=== PATIENT | male | born 1950 | race Caucasian/White ===

== ENCOUNTER → 2017-02-04 | Outpatient (CLI) | payer OTHER, BC | LOC: BMCIMAGING 08:51 | PROVIDERS: ATTEND Internal Medicine | DX: E04.2 Nontoxic multinodular goiter (principal) | CPT/HCPCS: 76536-PO ==

== ENCOUNTER → 2017-03-24 | Outpatient (CLI) | payer OTHER, BC ==
[~2017-03-24] MED LIST: LIDOCAINE 1% 300 MG/30 ML SDV ONE
== END ==
LOC: FIMAGING 12:29
PROVIDERS: ATTEND Internal Medicine Endocrinology, Diabetes & Metabolism
PROC: 0G9G3ZX Drainage of Left Thyroid Gland Lobe, Percutaneous Approach, Diagnostic (ICD-10-PCS; principal; 2017-03-24)
DX: E04.1 Nontoxic single thyroid nodule (principal)

== ENCOUNTER 2017-04-14 09:24 | Observation (INO) | payer OTHER, BC ==
[2017-04-14] MEDS ORDERED: THROMBIN (BOVINE) 20,000 UNIT VIAL TP ONE (09:36)
[2017-04-14] MEDS ORDERED: CHLORHEXIDINE GLUC HIBICLENS 118 ML BTL TP ONE (09:36)
[2017-04-14] MEDS ORDERED: BACITRACIN 50,000 UNITS/10 ML SYR IRR ONE (09:37)
[2017-04-14] MEDS ORDERED: LIDOCAINE 1% 2 ML INJ ONE (10:00)
[2017-04-14] MEDS ORDERED: LIDOCAINE 1% 2 ML INJ ID PRN (10:08)
[2017-04-14] MEDS ORDERED: LR 1,000 ML IV ONE (10:08)
[2017-04-14] MEDS ORDERED: GABAPENTIN 300 MG CAP PO ONE ×2 (10:15→10:30)
[2017-04-14] MEDS ORDERED: morphINE SR 15 MG TAB PO ONE (10:30)
[2017-04-14] MEDS ORDERED: ceFAZolin 2 GM/SWFI 2 GM/20 ML SYR IVP ONE (10:30)
[2017-04-14] MEDS ORDERED: ACETAMINOPHEN 500 MG TAB PO ONE (10:30)
[2017-04-14] MEDS ORDERED: MIDAZOLAM 2 MG/2 ML VIAL IVP ONE (11:18)
--- NOTE | 2017-04-14 11:18 | PDANEPAE ---
ANE History of Present Illness spinal stenosis ANE Past Medical History - Cardiovascular History Hx Hypertension: Yes Hx Arrhythmias: No Hx Chest Pain: No Hx Coronary Artery / Peripheral Vascular Disease: No Hx CHF / Valvular Disease: No Hx Palpitations: No - Pulmonary History Hx COPD: No Hx Asthma/Reactive Airway Disease: No Hx Recent Upper Respiratory Infection: No Hx Oxygen in Use at Home: No Hx Sleep Apnea: No Sleep Apnea Screening Result - Last Documented: Negative Pulmonary History Comment: ASBESTOSIS W/SOB FROM CUSTODIAL CONSTRUCTION WORK - Neurologic History Hx Cerebrovascular Accident: No Hx Seizures: No Hx Dementia: No - Endocrine History Hx Diabetes: No - Renal History Hx Renal Disorders: No - Liver History Hx Hepatic Disorders: No - Neurological & Psychiatric Hx Hx Neurological and Psychiatric Disorders: No - Cancer History Hx Cancer: Yes Cancer History Comment: 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 SKIN CA REMOVED - Congenital Disorder History Hx Congenital Disorders: No - GI History Hx Gastrointestinal Disorders: Yes Gastrointestinal History Comment: ACID REFLUX - Other Health History Other Health History: NEG - Chronic Pain History Chronic Pain: Yes (L ARM & SHOULDER) - Surgical History Prior Surgeries: BACK SURGERY 2007. R SHOULDER PARTIAL 2007. L TKA 2010. REVISION L TKA 2009. R DIANA 2013. APPENDIX 2015 ANE Review of Systems Review of Systems: - Exercise capacity METS (RN): 3 METS ANE Patient History - Allergies Allergies/Adverse Reactions: No Known Allergies Allergy (Unverified 04/08/17 15:38) - Home Medications Home Medications: Amlodipine Besylate [Norvasc] 5 mg PO DAILY 04/02/17 [Last Taken 04/13/17 06:15] Cholecalciferol Vit D3 [Vitamin D3 2000 units tab (OTC)] 2,000 units PO DAILY [Last Taken 1 Week Ago ~04/07/17] Fish Oil/Dha/Epa [Fish Oil 1,200 mg Fish Oil] 1 each PO DAILY 04/02/17 [Last Taken 1 Week Ago ~04/07/17] Gabapentin [Neurontin 100 MG (*)] 300 mg PO TID 04/02/17 [Last Taken 04/14/17 06 :15] Multivitamins [Multivitamin (*)] 1 each PO DAILY 04/02/17 [Last Taken 1 Week Ago ~04/07/17] Naproxen Sod/Diphenhydramine [Aleve Pm Caplet] 2 each PO HS 04/02/17 [Last Taken 1 Week Ago ~04/07/17] Naproxen Sodium [Aleve] 440 mg PO DAILY 04/02/17 [Last Taken 1 Week Ago ~] RX: Herbals/Supplements -Info Only 1 ea PO DAILY 04/02/17 [Last Taken 1 Week Ago ~04/07/17] RX: Omeprazole 40 mg PO DAILY 04/02/17 [Last Taken 04/13/17 06:00] Hydrocodone/Acetaminophen [Hydrocodon-Acetaminophen 5-325] 1 each PO 04/14/17 [ Last Taken 04/14/17 06:15] - NPO status NPO Since - Liquids (Date): 04/14/17 NPO Since - Liquids (Time): 06:00 NPO Since - Solids (Date): 04/13/17 NPO Since - Solids (Time): 19:00 - Smoking Hx Smoking Status: Former smoker - Family Anes Hx Family Hx Anesthesia Complications: NEG ANE Labs/Vital Signs - Vital Signs Blood Pressure: 156/89 Heart Rate: 65 Respiratory Rate: 15 O2 Sat (%): 92 Height: 170.18 cm Weight: 93.894 kg ANE Physical Exam - Airway Mallampati Score: Class 3 Mouth exam: normal dental/mouth exam - Pulmonary Pulmonary: no respiratory distress - Cardiovascular Cardiovascular: regular rate and rhythym - ASA Status ASA Status: III ANE Anesthesia Plan Anesthesia Plan: general endotracheal anesthesia
[2017-04-14] MEDS ORDERED: MIDAZOLAM 2 MG/2 ML VIAL ONE (11:27)
[2017-04-14] MEDS ORDERED: ONDANSETRON 4 MG/2 ML VIAL ONE (11:34)
[2017-04-14] MEDS ORDERED: DEXAMETHASONE 4 MG/ML VIAL ONE (11:34)
[2017-04-14] MEDS ORDERED: LIDOCAINE 2% 5 ML SDV ONE (11:34)
[2017-04-14] MEDS ORDERED: ROCURONIUM 50 MG/5 ML VIAL ONE (11:34)
[2017-04-14] MEDS ORDERED: fentaNYL 100 MCG/2 ML INJ ONE ×3 (11:35→13:02)
[2017-04-14] MEDS ORDERED: KETAMINE 100 MG/10 ML SYR ONE (11:35)
[2017-04-14] MEDS ORDERED: PROPOFOL 200 MG/20 ML VIAL ONE ×2 (11:35→13:35)
[2017-04-14] MEDS ORDERED: PROPOFOL/EMULSION 500 MG/50 ML BOTTLE IV ONE (11:35)
[2017-04-14] MEDS ORDERED: HYDROmorphONE/DILAUDID 2 MG/ML INJ ONE (11:35)
--- NOTE | 2017-04-14 11:39 | PDHPUP ---
History & Physical Update H&P update statement: This history and physical update is based on an assessment of the patient which was completed after admission or registration (within 24 hours), but prior to the surgery/procedure. H&P update: H&P reviewed & patient examined, no change in patient's condition since H&P completed H&P changes: Consents signed and site marked. Plan for C4/5/6 ACDF. All questions answered.
[2017-04-14] MEDS ORDERED: CYCLOBENZAPRINE 10 MG TAB PO PRN (14:18)
[2017-04-14] MEDS ORDERED: POLYETHYLENE GLYCOL 3350 17 GM PKT PO PRN (14:18)
[2017-04-14] MEDS ORDERED: BISACODYL 10 MG SUPP PR PRN (14:18)
[2017-04-14] MEDS ORDERED: ONDANSETRON DISINTEGRATING 4 MG TAB PO PRN (14:18)
[2017-04-14] MEDS ORDERED: ONDANSETRON 4 MG/2 ML VIAL IVP PRN ×2 (14:18→14:24)
[2017-04-14] MEDS ORDERED: HYDROmorphONE/DILAUDID 1 MG/ML INJ IVP PRN (14:18)
[2017-04-14] MEDS ORDERED: LACTULOSE 20 GM/30 ML UDCUP PO PRN (14:18)
[2017-04-14] MEDS ORDERED: diphenhydrAMINE 25 MG CAP PO PRN (14:18)
[2017-04-14] MEDS ORDERED: MAGNESIUM HYDROXIDE 30 ML UDCUP PO PRN (14:18)
[2017-04-14] MEDS ORDERED: PROMETHAZINE HCL 25 MG/ML INJ IVP PRN ×2 (14:18→14:24)
[2017-04-14] MEDS ORDERED: HYDROCODONE/APAP 5/325 TAB PO PRN (14:24)
[2017-04-14] MEDS ORDERED: fentaNYL 100 MCG/2 ML INJ IVP PRN (14:24)
[2017-04-14] MEDS ORDERED: NALOXONE HCL 0.4 MG/ML INJ IVP PRN (14:24)
[2017-04-14] MEDS ORDERED: HYDROmorphone HCL/NS/PF 0.4 MG/2 ML SYR IVP PRN (14:24)
--- NOTE | 2017-04-14 14:25 | POSTANESTH ---
Post Anesthetic Evaluation Cardiovascular Status: Normal, Stable Respiratory Status: Normal, Stable Level of Consciousness/Mental Status: Can Participate in Eval Pain Control: Adequate, Prn Tx Ordered Nausea/Vomiting Control: Adequate, Prn Tx Ordered Complications Possibly Related to Anesthesia: None Noted
[2017-04-14] MEDS ORDERED: DIAZEPAM 10 MG/2 ML SYR IVP PRN (14:26)
[2017-04-14] MEDS ORDERED: NS W/ 20 KCl/L 1,000 ML IV SCH (14:30)
--- NOTE | 2017-04-14 14:32 | POSTOPPROG ---
Post Op Note Date of Operation: 04/14/17 Surgeon: Rowdy Steven Cae Engineer: Romeo Grant PA-C Anesthesiologist: Suleman Anesthesia: GET(General Endotracheal) Pre-op Diagnosis: cervical stenosis Post-op Diagnosis: same Indication: cord compression Procedure: C4-6 ACDF Findings: Please see dictation Inf/Abcess present in the surg proc area at time of surgery?: No Depth: Organ Space EBL: Minimal Total fluids administered: 900cc Complications: none Specimen(s): none PA Addendum - Addendum .: S: Pt awake in PACU, denies pain O: Sleepy but awakens easily NAD VSS MAEx4 Motor 5/5 BUE/BLE +LT Incision cdi collar on A: 66 yo M s/p C4-6 ACDF 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
--- NOTE | 2017-04-14 14:32 | POSTOPPROG ---
Post Op Note Date of Operation: 04/14/17 Surgeon: Rowdy Steven Bottle Packer: Romeo Grant PA-C Anesthesiologist: Suleman Anesthesia: GET(General Endotracheal) Pre-op Diagnosis: cervical stenosis Post-op Diagnosis: same Indication: cord compression Procedure: C4-6 ACDF Findings: Please see dictation Inf/Abcess present in the surg proc area at time of surgery?: No Depth: Organ Space EBL: Minimal Total fluids administered: 900cc Complications: none Specimen(s): none PA Addendum - Addendum .: S: Pt awake in PACU, denies pain O: Sleepy but awakens easily NAD VSS MAEx4 Motor 5/5 BUE/BLE +LT Incision cdi collar on A: 66 yo M s/p C4-6 ACDF 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
--- NOTE | 2017-04-14 14:32 | POSTOPPROG ---
Post Op Note Date of Operation: 04/14/17 Surgeon: Rowdy Steven Adventure Therapist: Romeo Grant PA-C Anesthesiologist: Suleman Anesthesia: GET(General Endotracheal) Pre-op Diagnosis: cervical stenosis Post-op Diagnosis: same Indication: cord compression Procedure: C4-6 ACDF Findings: Please see dictation Inf/Abcess present in the surg proc area at time of surgery?: No Depth: Organ Space EBL: Minimal Total fluids administered: 900cc Complications: none Specimen(s): none PA Addendum - Addendum .: S: Pt awake in PACU, denies pain O: Sleepy but awakens easily NAD VSS MAEx4 Motor 5/5 BUE/BLE +LT Incision cdi collar on A: 66 yo M s/p C4-6 ACDF 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
[2017-04-14] MEDS ORDERED: GABAPENTIN 100 MG CAP PO SCH (16:00)
[2017-04-14] MEDS: GABAPENTIN 100 MG CAP PO SCH ×2 (18:07→21:16)
--- NOTE | 2017-04-14 19:00 | GOP ---
[f rep st] OPERATIVE REPORT DATE OF OPERATION: 04/14/2017 SURGEON: Rowdy Steven MD DATABASE DEVELOPER: Robyn Grant PA-C. ANESTHESIA: General. PREOPERATIVE DIAGNOSIS: 1. C4-C5and C5-C6 left-sided lateral recess and foraminal stenosis. 2. Left upper extremity radiculopathy and weakness. 3. Treatment refractory to nonoperative intervention. POSTOPERATIVE DIAGNOSIS: 1. C4-C5and C5-C6 left-sided lateral recess and foraminal stenosis. 2. Left upper extremity radiculopathy and weakness. 3. Treatment refractory to nonoperative intervention. PROCEDURE PERFORMED: 1. Anterior arthrodesis with approach to C4, C5, and C6. 2. C4-C5 diskectomy with bilateral foraminotomies, osteophytectomies, and interbody fusion using an 8 x 14 x 11 mm titanium coated PEEK cage filled with morselized autograft. 3. C5-C6 diskectomy with bilateral foraminotomies, osteophytectomies, and interbody fusion using a 7 x 14 x 11 mm titanium coated PEEK cage filled with morselized autograft. 4. Anterior cervical fusion C4, C5, and C6 with a 40 mm Medtronic [place] translational plate. 5. Use of intraoperative fluoroscopy, less than 1 hour physician time. 6. Use of neuromonitoring. 7. Use of intraoperative microscope. FINDINGS: per imaging SPECIMENS: None. ESTIMATED BLOOD LOSS: 10 mL. INDICATIONS: Patient is a 66-year-old gentleman who presented with rapidly progressive left upper extremity radiculopathy and weakness. He had imaging studies demonstrating left-sided foraminal stenosis and lateral recess stenosis at C4-C5 and C5-C6 which correlated with his symptoms. He also had slight spinal anterolisthesis of C4 on C5. After discussion of risks, benefits, and treatment alternatives, after failing nonoperative interventions, we decided to proceed forth with surgery as described above. DESCRIPTION OF PROCEDURE: Patient was brought to the operating theater and underwent general endotracheal anesthesia without complications. Venodyne, KYLE hose, and the appropriate lines placed by Anesthesia. His head was then placed supine on the operating table in slight extension. The patient was noted to be quite stiff and had limited extension on the table. Using lateral fluoroscopy and a spinal needle, we picked our entry point to the C4 through C6 levels. This was marked as a transverse incision on the right side of his neck. This area was prepped and draped in the usual sterile surgical fashion. A time-out was completed per protocol. The patient received antibiotics within 1 hour of incision. The incision was taken down with the scalpel blade and then, using monopolar, taken down through subcutaneous tissue to the level of the platysma. The platysma was over-mined in the cranial and caudal directions. A Weitlaner was placed to maintain exposure. We then opened the fibers of the platysma cranially and caudally. Using blunt sharp dissection, we then traveled in a plane medial to the carotid sheath and lateral to esophagus and trachea to reach the prevertebral fascia. He had large anterior osteophytes on C4, C5, and C6 that we removed with a Le[place]ell Rongeur. At this point, we placed a bayonetted needle into the disk space of C4-C5 and confirmed our level using lateral fluoroscopy. We elevated the longus coli muscle from the anterior vertebral bodies of C4, C5, and C6, and deep retractors were then placed to maintain our exposure. The microscope was brought into field to assist with microscopic dissection and maintain illumination and magnification. We first started at C4-C5 and placed a [place] pin into C4 and C5 and placed C4- C5 into mild distraction. We completed a C4-C5 diskectomy with bilateral foraminotomies and osteophytectomies. We prepared the cartilaginous endplates and measured the interbody space. We placed an 8 x 14 x 11 mm titanium coated PEEK cage filled with morselized autograft into the C4-C5 disk space. We removed the [place] pin from C4 and placed it into C6 and placed C5-C6 in mild distraction. We completed a C5-C6 diskectomy with bilateral foraminotomies and osteophytectomies. We prepared the cartilaginous endplates and measured the interbody space. We placed a 7 x 14 x 11 mm titanium coated PEEK cage filled with morselized autograft into the C5-C6 disk space. We removed the [place] pins and drilled down the anterior osteophytes. We then secured a 40 mm Medtronic [place] translational plate onto the vertebral bodies of C4, C5, and C6. AP and lateral x-rays demonstrated good placement of the hardware. The wound was irrigated copiously with bacitracin irrigation and then closed in multiple layers using Vicryl sutures for the deep layers and Dermabond for the skin. The patient's wounds were dressed sterilely. He was awakened, extubated , and taken to the recovery room in stable condition. There were no complications and no noted changes on neuromonitoring throughout the procedure. COMPLICATIONS: None. /[id number]/MODL MTDD
--- NOTE | 2017-04-14 19:00 | GOP ---
[f rep st] OPERATIVE REPORT DATE OF OPERATION: 04/14/2017 SURGEON: Rowdy Steven MD TERADATA SOLUTION ARCHITECT: Robyn Grant PA-C. ANESTHESIA: General. PREOPERATIVE DIAGNOSIS: 1. C4-C5and C5-C6 left-sided lateral recess and foraminal stenosis. 2. Left upper extremity radiculopathy and weakness. 3. Treatment refractory to nonoperative intervention. POSTOPERATIVE DIAGNOSIS: 1. C4-C5and C5-C6 left-sided lateral recess and foraminal stenosis. 2. Left upper extremity radiculopathy and weakness. 3. Treatment refractory to nonoperative intervention. PROCEDURE PERFORMED: 1. Anterior arthrodesis with approach to C4, C5, and C6. 2. C4-C5 diskectomy with bilateral foraminotomies, osteophytectomies, and interbody fusion using an 8 x 14 x 11 mm titanium coated PEEK cage filled with morselized autograft. 3. C5-C6 diskectomy with bilateral foraminotomies, osteophytectomies, and interbody fusion using a 7 x 14 x 11 mm titanium coated PEEK cage filled with morselized autograft. 4. Anterior cervical fusion C4, C5, and C6 with a 40 mm Medtronic [place] translational plate. 5. Use of intraoperative fluoroscopy, less than 1 hour physician time. 6. Use of neuromonitoring. 7. Use of intraoperative microscope. FINDINGS: per imaging SPECIMENS: None. ESTIMATED BLOOD LOSS: 10 mL. INDICATIONS: Patient is a 66-year-old gentleman who presented with rapidly progressive left upper extremity radiculopathy and weakness. He had imaging studies demonstrating left-sided foraminal stenosis and lateral recess stenosis at C4-C5 and C5-C6 which correlated with his symptoms. He also had slight spinal anterolisthesis of C4 on C5. After discussion of risks, benefits, and treatment alternatives, after failing nonoperative interventions, we decided to proceed forth with surgery as described above. DESCRIPTION OF PROCEDURE: Patient was brought to the operating theater and underwent general endotracheal anesthesia without complications. Venodyne, KYLE hose, and the appropriate lines placed by Anesthesia. His head was then placed supine on the operating table in slight extension. The patient was noted to be quite stiff and had limited extension on the table. Using lateral fluoroscopy and a spinal needle, we picked our entry point to the C4 through C6 levels. This was marked as a transverse incision on the right side of his neck. This area was prepped and draped in the usual sterile surgical fashion. A time-out was completed per protocol. The patient received antibiotics within 1 hour of incision. The incision was taken down with the scalpel blade and then, using monopolar, taken down through subcutaneous tissue to the level of the platysma. The platysma was over-mined in the cranial and caudal directions. A Weitlaner was placed to maintain exposure. We then opened the fibers of the platysma cranially and caudally. Using blunt sharp dissection, we then traveled in a plane medial to the carotid sheath and lateral to esophagus and trachea to reach the prevertebral fascia. He had large anterior osteophytes on C4, C5, and C6 that we removed with a Le[place]ell Rongeur. At this point, we placed a bayonetted needle into the disk space of C4-C5 and confirmed our level using lateral fluoroscopy. We elevated the longus coli muscle from the anterior vertebral bodies of C4, C5, and C6, and deep retractors were then placed to maintain our exposure. The microscope was brought into field to assist with microscopic dissection and maintain illumination and magnification. We first started at C4-C5 and placed a [place] pin into C4 and C5 and placed C4- C5 into mild distraction. We completed a C4-C5 diskectomy with bilateral foraminotomies and osteophytectomies. We prepared the cartilaginous endplates and measured the interbody space. We placed an 8 x 14 x 11 mm titanium coated PEEK cage filled with morselized autograft into the C4-C5 disk space. We removed the [place] pin from C4 and placed it into C6 and placed C5-C6 in mild distraction. We completed a C5-C6 diskectomy with bilateral foraminotomies and osteophytectomies. We prepared the cartilaginous endplates and measured the interbody space. We placed a 7 x 14 x 11 mm titanium coated PEEK cage filled with morselized autograft into the C5-C6 disk space. We removed the [place] pins and drilled down the anterior osteophytes. We then secured a 40 mm Medtronic [place] translational plate onto the vertebral bodies of C4, C5, and C6. AP and lateral x-rays demonstrated good placement of the hardware. The wound was irrigated copiously with bacitracin irrigation and then closed in multiple layers using Vicryl sutures for the deep layers and Dermabond for the skin. The patient's wounds were dressed sterilely. He was awakened, extubated , and taken to the recovery room in stable condition. There were no complications and no noted changes on neuromonitoring throughout the procedure. COMPLICATIONS: None. /[id number]/MODL MTDD
[2017-04-14] MEDS: ceFAZolin 2 GM/DEXTROSE 100 ML IV SCH (19:51)
[2017-04-14] MEDS: SENNOSIDES/DOCUSATE SODIUM TAB PO SCH (19:53)
[2017-04-14] MEDS: oxyCODONE IR 5 MG TAB PO PRN (19:53)
[2017-04-14] MEDS: FAMOTIDINE 20 MG TAB PO SCH (19:54)
[2017-04-14] MEDS ORDERED: hydrALAZINE 20 MG/ML VIAL IVP PRN (20:57)
[2017-04-14] MEDS ORDERED: NS 500 ML IV ONE (21:00)
[2017-04-14] MEDS: ACETAMINOPHEN 500 MG TAB PO SCH (21:15)
[2017-04-15 00:13] VITALS: RESP 16
[2017-04-15] MEDS: oxyCODONE IR 5 MG TAB PO PRN ×2 (00:42→04:21)
[2017-04-15 04:16] VITALS: O2SAT 94
[2017-04-15] MEDS: ceFAZolin 2 GM/DEXTROSE 100 ML IV SCH (04:20)
[2017-04-15] MEDS: ACETAMINOPHEN 500 MG TAB PO SCH (06:20)
--- NOTE | 2017-04-15 07:32 | NEUSURGPN ---
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 NAD. Eating/drinking and voiding. No f/c/n/v/d. No sevilla/chest /abd or gu complaints Objective: Sleepy but awakens easily NAD VSS MAEx4 Motor 5/5 BUE/BLE +LT Incision cdi collar on Neuro Check Frequency: per routine Urinary Catheter in Place: No - Physician Discussed Patient with : Tenisha Neurosurgery Physical Exam - Vitals, I&O, Labs I and O 04/14/17 04/15/17 04/16/17 05:59 05:59 05:59 Intake Total 3575 Output Total 410 Balance 3165 Weight 93.89 kg Intake: Oral (ml) 1250 IV Intake (ml) 1425 IV Infused (ml) 900 Lr 1,000 ml @ Per 700 Protocol IV ONCE ONE Rx#: [id number] ceFAZolin 2 GM/DEXTROSE 200 100 ml @ 200 mls/hr IV Q8H GOYO Rx#:[id number] Output: Urine (ml) 400 Toilet 400 Estimated Blood Loss (ml) 10 Other: Intake Quantity Yes Sufficient Output Comment Toilet Large amount Number of Voids Toilet 1 Vital Signs Temp Pulse Resp BP Pulse Ox 36.9 C 81 16 155/92 H 94 04/15/17 04:00 04/15/17 04:00 04/15/17 04:00 04/15/17 04:00 04/15/17 04:00 ICD10 Worksheet Patient Problems: Problems Problem Status Onset Arthrodesis status Acute Cervical radiculitis Acute Cervical spinal stenosis Acute - ICD10 Problem Qualifiers (1) Cervical spinal stenosis (2) Cervical radiculitis (3) Arthrodesis status
--- NOTE | 2017-04-15 07:32 | NEUSURGPN ---
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 NAD. Eating/drinking and voiding. No f/c/n/v/d. No sevilla/chest /abd or gu complaints Objective: Sleepy but awakens easily NAD VSS MAEx4 Motor 5/5 BUE/BLE +LT Incision cdi collar on Neuro Check Frequency: per routine Urinary Catheter in Place: No - Physician Discussed Patient with : Tenisha Neurosurgery Physical Exam - Vitals, I&O, Labs I and O 04/14/17 04/15/17 04/16/17 05:59 05:59 05:59 Intake Total 3575 Output Total 410 Balance 3165 Weight 93.89 kg Intake: Oral (ml) 1250 IV Intake (ml) 1425 IV Infused (ml) 900 Lr 1,000 ml @ Per 700 Protocol IV ONCE ONE Rx#: [id number] ceFAZolin 2 GM/DEXTROSE 200 100 ml @ 200 mls/hr IV Q8H GOYO Rx#:[id number] Output: Urine (ml) 400 Toilet 400 Estimated Blood Loss (ml) 10 Other: Intake Quantity Yes Sufficient Output Comment Toilet Large amount Number of Voids Toilet 1 Vital Signs Temp Pulse Resp BP Pulse Ox 36.9 C 81 16 155/92 H 94 04/15/17 04:00 04/15/17 04:00 04/15/17 04:00 04/15/17 04:00 04/15/17 04:00 ICD10 Worksheet Patient Problems: Problems Problem Status Onset Arthrodesis status Acute Cervical radiculitis Acute Cervical spinal stenosis Acute - ICD10 Problem Qualifiers (1) Cervical spinal stenosis (2) Cervical radiculitis (3) Arthrodesis status
--- NOTE | 2017-04-15 07:32 | NEUSURGPN ---
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 NAD. Eating/drinking and voiding. No f/c/n/v/d. No sev[place]/chest /abd or gu complaints Objective: Sleepy but awakens easily NAD VSS MAEx4 Motor 5/5 BUE/BLE +LT Incision cdi collar on Neuro Check Frequency: per routine Urinary Catheter in Place: No - Physician Discussed Patient with : Tenisha Neurosurgery Physical Exam - Vitals, I&O, Labs I and O 04/14/17 04/15/17 04/16/17 05:59 05:59 05:59 Intake Total 3575 Output Total 410 Balance 3165 Weight 93.89 kg Intake: Oral (ml) 1250 IV Intake (ml) 1425 IV Infused (ml) 900 Lr 1,000 ml @ Per 700 Protocol IV ONCE ONE Rx#: [id number] ceFAZolin 2 GM/DEXTROSE 200 100 ml @ 200 mls/hr IV Q8H GOYO Rx#:[id number] Output: Urine (ml) 400 Toilet 400 Estimated Blood Loss (ml) 10 Other: Intake Quantity Yes Sufficient Output Comment Toilet Large amount Number of Voids Toilet 1 Vital Signs Temp Pulse Resp BP Pulse Ox 36.9 C 81 16 155/92 H 94 04/15/17 04:00 04/15/17 04:00 04/15/17 04:00 04/15/17 04:00 04/15/17 04:00 ICD10 Worksheet Patient Problems: Problems Problem Status Onset Arthrodesis status Acute Cervical radiculitis Acute Cervical spinal stenosis Acute - ICD10 Problem Qualifiers (1) Cervical spinal stenosis (2) Cervical radiculitis (3) Arthrodesis status
[2017-04-15 07:49] VITALS: BP 159/90; PULSE 70; TEMP 98.6
[2017-04-15] MEDS ORDERED: MULTIVITAMINS 1 EACH TAB PO SCH (09:00)
[2017-04-15] MEDS ORDERED: amLODIPine BESYLATE 5 MG TAB PO SCH (09:00)
[2017-04-15] MEDS ORDERED: PANTOPRAZOLE SODIUM 40 MG TAB PO SCH (09:00)
[2017-04-15] MEDS ORDERED: NON-FORMULARY NEW DRUG (Omeprazole [Omeprazole] 40 MG) PO SCH (09:00)
[2017-04-15] MEDS: FAMOTIDINE 20 MG TAB PO SCH (09:03)
[2017-04-15] MEDS: GABAPENTIN 100 MG CAP PO SCH (09:04)
[2017-04-15] MEDS: SENNOSIDES/DOCUSATE SODIUM TAB PO SCH (09:05)
--- NOTE | 2017-04-15 10:21 | ASMTCMCOM ---
CM Note CM Note Notes: Patient is POD #1 C4-6 ACDF and doing well. I spoke with patient, he is awaiting neurosurgery recommendation on when to schedule outpatient PT. Today's PT/OT evaluations recommend home with support of . Patient agrees that he will be able to manage at home. CM available if needs change. Date Signed: 04/15/2017 10:21 AM Electronically Signed By:Cony Haddad RN
--- NOTE | 2017-04-15 12:13 | ASDISCHSUM ---
Discharge Information Plan Status:Home with No Needs Medically Cleared to Leave: Discharge Date:04/15/2017 11:46 AM CM D/C Disposition:Home, Routine, Self-Care ADT D/C Disposition:Home, Routine, Self-Care Projected Discharge Date:04/15/2017 11:46 AM Transportation at D/C:Family Discharge Delay Reason: Follow-Up Date:04/15/2017 11:46 AM Discharge Slot: Final Diagnosis: Placement Information Patient Contact Information Contact Name:MALI Relationship: Address:[address] City:[place] Alternate Phone: [facility]/Zip Code:[place] [address] Email: Financial Information Financial Class: Primary Plan Desc:MEDICARE OUTPATIENT Primary Plan Number:[id number] Secondary [facility] Desc[facility] Secondary Plan Number:[id number] Assessment Information [facility] CM Progress Note CM Note CM Note Notes: Patient is POD #1 C4-6 ACDF and doing well. I spoke with patient, he is awaiting neurosurgery recommendation on when to schedule outpatient PT. Today's PT/OT evaluations recommend home with support of . Patient agrees that he will be able to manage at home. CM available if needs change. Date Signed: 04/15/2017 10:21 AM Electronically Signed By:Cony Haddad RN Intervention Information Intervention Type:*GUME-Signed Date of Service:04/15/2017 11:05 AM Patient Type:Observation Staff Member:Rosa Sigala Hours: Discipline: Severity: Comment:
--- NOTE | 2017-04-15 12:13 | ASDISCHSUM ---
Discharge Information Plan Status:Home with No Needs Medically Cleared to Leave: Discharge Date:04/15/2017 11:46 AM CM D/C Disposition:Home, Routine, Self-Care ADT D/C Disposition:Home, Routine, Self-Care Projected Discharge Date:04/15/2017 11:46 AM Transportation at D/C:Family Discharge Delay Reason: Follow-Up Date:04/15/2017 11:46 AM Discharge Slot: Final Diagnosis: Placement Information Patient Contact Information Contact Name:MALI Relationship: Address:[address] City:[place] Alternate Phone: [facility]/Zip Code:[place] [address] Email: Financial Information Financial Class: Primary Plan Desc:MEDICARE OUTPATIENT Primary Plan Number:[id number] [facility] Secondary Plan Number:[id number] Assessment Information [facility] CM Progress Note CM Note CM Note Notes: Patient is POD #1 C4-6 ACDF and doing well. I spoke with patient, he is awaiting neurosurgery recommendation on when to schedule outpatient PT. Today's PT/OT evaluations recommend home with support of . Patient agrees that he will be able to manage at home. CM available if needs change. Date Signed: 04/15/2017 10:21 AM Electronically Signed By:Cony Haddad RN Intervention Information Intervention Type:*GUME-Signed Date of Service:04/15/2017 11:05 AM Patient Type:Observation Staff Member:Rosa Sigala Hours: Discipline: Severity: Comment:
--- NOTE | 2017-04-15 12:13 | ASDISCHSUM ---
Discharge Information Plan Status:Home with No Needs Medically Cleared to Leave: Discharge Date:04/15/2017 11:46 AM CM D/C Disposition:Home, Routine, Self-Care ADT D/C Disposition:Home, Routine, Self-Care Projected Discharge Date:04/15/2017 11:46 AM Transportation at D/C:Family Discharge Delay Reason: Follow-Up Date:04/15/2017 11:46 AM Discharge Slot: Final Diagnosis: Placement Information Patient Contact Information Contact Name:MALI Relationship: Address:[address] City:[place] Alternate Phone: [facility]/Zip Code:[place] [address] Email: Financial Information Financial Class: Primary Plan Desc:MEDICARE OUTPATIENT Primary Plan Number:[id number] [facility] Secondary Plan Number:[id number] Assessment Information [facility] CM Progress Note CM Note CM Note Notes: Patient is POD #1 C4-6 ACDF and doing well. I spoke with patient, he is awaiting neurosurgery recommendation on when to schedule outpatient PT. Today's PT/OT evaluations recommend home with support of . Patient agrees that he will be able to manage at home. CM available if needs change. Date Signed: 04/15/2017 10:21 AM Electronically Signed By:Cony Haddad RN Intervention Information Intervention Type:*GUME-Signed Date of Service:04/15/2017 11:05 AM Patient Type:Observation Staff Member:Rosa Sigala Hours: Discipline: Severity: Comment:
[2017-04-17] MEDS ORDERED: ENOXAPARIN 40 MG/0.4 ML SYR SC SCH (09:00)
== END 2017-04-15 11:46 | disposition home or self-care (01) ==
LOC: F3N 09:24
PROVIDERS: ADMIT Neurological Surgery; ATTEND Neurological Surgery
DX: M99.71 Connective tissue and disc stenosis of intervertebral foramina of cervical region (principal); M54.12 Radiculopathy, cervical region; R53.1 Weakness
CPT/HCPCS: 22551; 72040; 76001; 92610; 97161; 97165; C1713; G8978; G8979; G8980; G8987; G8988; G8989; G8996; G8997; J0690; J1100; J1170; J2250; J2405; J2704; J3010

== ENCOUNTER → 2017-05-18 | Outpatient (CLI) | payer OTHER, BC | LOC: BMCIMAGING 15:28 | PROVIDERS: ATTEND Internal Medicine | DX: Z77.090 Contact with and (suspected) exposure to asbestos (principal); J98.11 Atelectasis ==

== ENCOUNTER → 2017-06-13 | Outpatient (CLI) | payer OTHER, BC | LOC: FIMAGING 10:32 | PROVIDERS: ATTEND Physician Assistant Surgical | DX: Z47.89 Encounter for other orthopedic aftercare (principal); Z98.1 Arthrodesis status ==

== ENCOUNTER → 2017-07-28 | Outpatient (CLI) | payer OTHER, BC | LOC: FIMAGING 12:46 | PROVIDERS: ATTEND Physician Assistant Surgical | DX: M43.12 Spondylolisthesis, cervical region (principal); R53.1 Weakness; Z98.1 Arthrodesis status ==

== ENCOUNTER → 2017-10-29 | Outpatient (CLI) | payer OTHER, BC | LOC: FIMAGING 10:43 | PROVIDERS: ATTEND Physician Assistant Surgical | DX: Z09 Encounter for follow-up examination after completed treatment for conditions other than malignant neoplasm (principal); Z98.1 Arthrodesis status; M43.12 Spondylolisthesis, cervical region; M50.020 Cervical disc disorder with myelopathy, mid-cervical region, unspecified level ==

== ENCOUNTER 2018-02-15 05:31 | Inpatient (IN) | payer OTHER, BC ==
--- NOTE | 2018-02-14 20:55 | GHP ---
DATE OF ADMISSION: 02/15/2018 DATE OF PLANNED PROCEDURE: 02/15/2018. 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 PLANNED PROCEDURE: Right total shoulder arthroplasty. PRIOR MEDICAL HISTORY: Arthritis, high cholesterol, hypertension. PAST SURGICAL HISTORY: Right humeral head resurfacing. MEDICATIONS: Amlodipine 10 mg, omeprazole 20 mg, simvastatin 20 mg, Tylenol Arthritis. ALLERGIES: No known drug allergies. SOCIAL HISTORY: Does not smoke. Occasional alcohol use. [place] here [place] town. REVIEW OF SYSTEMS: No shortness of breath or chest pain. Otherwise, review of systems unremarkable. PHYSICAL EXAM: VITAL SIGNS: 5 feet 7 inches tall, weighs 193 pounds. Blood pressure is 131/76, hea rt rate 66, respiratory rate is 16 on room air. Alert and oriented x3. HEENT: Normocephalic, atrau matic. Extraocular muscles intact. NECK: Supple. There is no lymphadenopathy. No JVD. CHEST: C lear to auscultation. CARDIOVASCULAR: Regular rate and rhythm. ABDOMEN: Soft, nontender, and nond istended. There is no hepatosplenomegaly. EXTREMITIES: Focused on the right shoulder: Well-healed deltopectoral incision. Active range of motion. Full extension, about 120 degrees of forward flexio n. Passively I can get him up to about 150. Quite a bit of crepitus in the joint. He has 45 degree s of active external rotation. Passively I can get him to 75. On internal rotation he gets his thum b to L5. Cuff strength: Supraspinatus and infraspinatus are 4 to 4+ out of 5. Subscapularis 4+ out of 5. IMAGING: Both plain x-rays and MRI: The cuff appears to be intact on the MRI. Imaging shows erosio n of the glenoid. Axillary view still shows sufficient glenoid for our shoulder replacement. ASSESSMENT: Failed humeral head resurfacing, right. PLAN: The patient is pretty limited with this right shoulder at this point. I think the next reason able step would be to proceed with hardware removal and a total shoulder arthroplasty as long as his cuff is in good enough shape for that. The risks and benefits, including the possibility of infectio n and need for additional surgery were all discussed. He understands these risks and wished to proce ed. We will plan on surgery Thursday at the hospital. /[id number]/MODL
[2018-02-15] MEDS ORDERED: ceFAZolin 2 GM/DEXTROSE 100 ML IV ONE (05:52)
[2018-02-15] MEDS ORDERED: LR 1,000 ML IV ONE (05:53)
[2018-02-15 06:40] LABS: PLATELET COUNT 183 10^3/uL (150-400)
[2018-02-15] MEDS ORDERED: POLYMYXIN B SULFATE 500,000 UNIT/10 ML SYR IRR ONE (06:53)
[2018-02-15] MEDS ORDERED: BACITRACIN 50,000 UNITS/10 ML SYR IRR ONE (06:53)
[2018-02-15] MEDS ORDERED: BUPIVACAINE 0.5% 30 ML SDV ONE (06:53)
[2018-02-15] MEDS ORDERED: EPINEPHrine 1 MG/ML INJ ONE (06:53)
--- NOTE | 2018-02-15 06:58 | PDHPUP ---
History & Physical Update H&P update statement: This history and physical update is based on an assessment of the patient which was completed after admission or registration (within 24 hours), but prior to the surgery/procedure. H&P update: H&P reviewed & patient examined, no change in patient's condition since H&P completed
[2018-02-15] MEDS ORDERED: MIDAZOLAM 2 MG/2 ML VIAL IVP ONE (07:04)
--- NOTE | 2018-02-15 07:05 | PDANEPAE ---
ANE History of Present Illness r shoulder oa ANE Past Medical History - Cardiovascular History Hx Hypertension: Yes Hx Arrhythmias: No Hx Chest Pain: No Hx Coronary Artery / Peripheral Vascular Disease: No Hx CHF / Valvular Disease: No Hx Palpitations: No - Pulmonary History Hx COPD: No Hx Asthma/Reactive Airway Disease: No Hx Recent Upper Respiratory Infection: No Hx Oxygen in Use at Home: No Hx Sleep Apnea: No Sleep Apnea Screening Result - Last Documented: Negative Pulmonary History Comment: ASBESTOSIS W/SOB FROM [employer] WORK - Neurologic History Hx Cerebrovascular Accident: No Hx Seizures: No Hx Dementia: No - Endocrine History Hx Diabetes: No - Renal History Hx Renal Disorders: No - Liver History Hx Hepatic Disorders: No - Neurological & Psychiatric Hx Hx Neurological and Psychiatric Disorders: No - Cancer History Hx Cancer: Yes Cancer History Comment: 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 SKIN CA REMOVED - Congenital Disorder History Hx Congenital Disorders: No - GI History Hx Gastrointestinal Disorders: Yes Gastrointestinal History Comment: ACID REFLUX - Other Health History Other Health History: wears glasses. bilateral hearing aides - Chronic Pain History Chronic Pain: Yes (right arm/ shoulder) - Surgical History Prior Surgeries: 04/14/17 ACDF with Rajpal. BACK SURGERY 2007. R SHOULDER PARTIAL 2007. L TKA 2010. REVISION L TKA 2010. R DIANA 2013. APPENDIX 2015 ANE Review of Systems Review of Systems: - Exercise capacity METS (RN): 4 METS ANE Patient History - Allergies Allergies/Adverse Reactions: No Known Allergies Allergy (Verified 02/12/18 12:19) - Home Medications Home Medications: Cholecalciferol Vit D3 [Vitamin D3 2000 units tab (OTC)] 2,000 units PO DAILY [Last Taken 1 Week Ago ~04/07/17] Herbals/Supplements -Info Only 1 ea PO DAILY 04/02/17 [Last Taken 1 Week Ago ~] Acetaminophen [Tylenol 325mg (*)] 650 mg PO DAILY 02/10/18 [Last Taken 02/15/18] Acetamn/Diphenhydramine 500/25 [Tylenol PM (*)] 2 each PO HS 02/10/18 [Last Taken 02/14/18] Omeprazole [Omeprazole] 20 mg PO DAILY 02/10/18 [Last Taken 02/15/18 04:00] Sennosides/Docusate Sodium [Senokot-S] 1 tab PO DAILY 02/10/18 [Last Taken Unknown] Simvastatin 20 mg PO DAILY 02/10/18 [Last Taken 02/14/18] amLODIPine BESYLATE [Norvasc 10 mg (*)] 10 mg PO DAILY 02/10/18 [Last Taken 03/25 04:00] - NPO status NPO Since - Liquids (Date): 02/15/18 NPO Since - Liquids (Time): 04:00 NPO Since - Solids (Date): 02/14/18 NPO Since - Solids (Time): 18:30 - Smoking Hx Smoking Status: Former smoker - Family Anes Hx Family Hx Anesthesia Complications: none ANE Labs/Vital Signs - Labs Result Diagrams: 02/15/18 06:30 - Vital Signs Blood Pressure: 135/87 Heart Rate: 54 Respiratory Rate: 16 O2 Sat (%): 94 Height: 170.18 cm Weight: 93.894 kg ANE Physical Exam - Airway Neck exam: FROM Mallampati Score: Class 2 Mouth exam: normal dental/mouth exam - Pulmonary Pulmonary: no respiratory distress - Cardiovascular Cardiovascular: regular rate and rhythym - ASA Status ASA Status: II ANE Anesthesia Plan Anesthesia Plan: general endotracheal anesthesia Regional Anesthesia: supraclavicular BP NB
[2018-02-15] MEDS ORDERED: ROPIVACAINE HCL 150 MG/30 ML INJ ONE (07:10)
[2018-02-15] MEDS ORDERED: fentaNYL 100 MCG/2 ML INJ ONE ×2 (07:10)
[2018-02-15] MEDS ORDERED: ROCURONIUM 50 MG/5 ML VIAL ONE (07:10)
[2018-02-15] MEDS ORDERED: PROPOFOL 200 MG/20 ML VIAL ONE (07:11)
[2018-02-15] MEDS ORDERED: THROMBIN (BOVINE) 5,000 UNIT VIAL TP ONE (08:00)
[2018-02-15] MEDS ORDERED: CALCIUM CHLORIDE 1 GM/10 ML INJ ONE (08:00)
[2018-02-15] MEDS ORDERED: HYDROmorphONE/DILAUDID 1 MG/ML INJ IVP PRN (08:20)
[2018-02-15] MEDS ORDERED: ONDANSETRON 4 MG/2 ML VIAL IVP PRN ×2 (08:20→09:50)
[2018-02-15] MEDS ORDERED: fentaNYL 100 MCG/2 ML INJ IVP PRN (08:20)
[2018-02-15] MEDS ORDERED: HYDROCODONE/APAP 5/325 TAB PO PRN (08:20)
[2018-02-15] MEDS ORDERED: PROMETHAZINE HCL 25 MG/ML INJ IVP PRN (08:20)
[2018-02-15] MEDS ORDERED: NALOXONE HCL 0.4 MG/ML INJ IVP PRN (08:20)
--- NOTE | 2018-02-15 09:42 | POSTOPPROG ---
Post Op Note Date of Operation: 02/15/18 Surgeon: Jeremy Bangura Tube Cutter Operator: willy Schultz Anesthesiologist: balta Anesthesia: GET(General Endotracheal) Pre-op Diagnosis: OA Rt shoulder Post-op Diagnosis: same Procedure: Humeral head implant removal, TSA Rt Findings: severe glenoid OA Inf/Abcess present in the surg proc area at time of surgery?: No Complications: none
[2018-02-15] MEDS ORDERED: ePHEDrine SULFATE 25 MG/5 ML SYR ONE (09:45)
[2018-02-15] MEDS ORDERED: ONDANSETRON 4 MG/2 ML VIAL ONE (09:45)
[2018-02-15] MEDS ORDERED: PHENYLEPHRINE HCL 100 MCG/ML SYR ONE (09:45)
[2018-02-15] MEDS ORDERED: DEXAMETHASONE 4 MG/ML VIAL ONE (09:45)
[2018-02-15] MEDS ORDERED: ACETAMINOPHEN 325 MG TAB PO PRN (09:50)
--- NOTE | 2018-02-15 10:09 | CPEKG ---
Test Reason : OPEN Blood Pressure : / mmHG Vent. Rate : 087 BPM Atrial Rate : 087 BPM P-R Int : 179 ms QRS Dur : 158 ms QT Int : 415 ms P-R-T Axes : 033 259 -14 degrees QTc Int : 500 ms Sinus rhythm RBBB and LAFB Confirmed by Dwaine Yip ([id number]) on 02/15/2018 10:08:56 AM Referred By: Confirmed By:Dwaine Yip
--- NOTE | 2018-02-15 10:42 | GOP ---
DATE OF OPERATION: 02/15/2018 SURGEON: Jeremy Bangura MD ROUTE DRIVER COIN MACHINES: Peyton Schultz PA-C ANESTHESIA: Interscalene block with general. ANESTHESIOLOGIST: Dr. Perales PREOPERATIVE DIAGNOSIS: Osteoarthritis with failed humeral head resurfacing implant. POSTOPERATIVE DIAGNOSIS: Osteoarthritis with failed humeral head resurfacing implant. PROCEDURE PERFORMED: Humeral head implant removal followed by total shoulder arthroplasty, right. FINDINGS: ESTIMATED BLOOD LOSS: 150 mL. DESCRIPTION OF PROCEDURE: After appropriate informed consent was obtained, patient was taken to the operating room and placed supine on the operating table. Time-out was performed. Patient was identified, correct site was identified. He received [address] Perales administered an interscalene block, followed by general endotracheal tube anesthesia. The patient was then positioned in the beach chair position with all bony prominences well padded. Right upper extremity was prepped and draped in usual sterile fashion. Using his previous deltopectoral incision, soft tissues were carefully dissected. I carefully elevated the deltoid and the pectoralis off the clavipectoral fascia, identified this, and incised it. I could not find the cephalic vein. It may have been sacrificed at the previous surgery. Bleeding was controlled with a combination of electrocautery as well as the Aquamantys device. I then took down the subscapularis tendon just medial to the lesser tubercle, leaving a cuff of tissue for later repair. This was tagged , and then using a Stout elevator, elevated the capsule from between the subscapularis and released the capsule inferiorly, anteriorly, removed that. I was then able to externally rotate and dislocate the humeral head over a darah retractor. Using oscillating saw, I was able to get beneath the implant and the humeral head, and removed the humeral head resurfacing implant. There was still good bone quality left in the humeral head. I freshened up the cut with the oscillating saw. We then used our 5 followed by our 6 femoral canal finding reamers and then began broaching and broached up to a size 8 with good rotational stability. We then placed a cover over the humeral head to protect it from traction and placed a Fukuda retractor around the posterior aspect of the glenoid. I released some tissue inferiorly, being careful to protect the axillary nerve throughout the entirety of the procedure as well as the anterior capsule and labrum from the glenoid. I then placed a glenoid neck retractor. I was able to retract the subscapularis. This gave us a good view of the glenoid. There was some posterior wear. We then found my center point, drilled our guidewire, and drilled our center PEG. Then using a reamer, we freshened up the glenoid being careful to try and maintain as much bone as we could. Medium gave us good coverage. I drilled my superior central and 3 inferior holes. We then used our curved osteotome to finish the inferior holes. Cement was mixed on the back table. We placed cement in the lower hole , superior hole, and then impacted our glenoid retractor. Excess cement was removed. We again dislocated the humeral head, irrigated it with pulsatile lavage, and placed our 8 stem, tightened up our head and neck angle at 135 degrees, and then trialed a 52 head. This gave us good stability without overstuffing the joint. Trial implant was removed and our final implant was tapped into place. Reduced the humeral head a final time. Again, good external rotation, good forward flexion to 140 degrees. I then repaired the subscapularis. I placed 2 drill holes prior to implanting the implant with 2 FiberWire sutures through there. Subscapular pared back to that as well as a 0 Vicryl was used to repair the subscapularis back to the cuff tissue left on the lesser tuberosity. The wound was irrigated a final time. I instilled 10 mL of PRP over the cut bone surfaces. The deltoid was tagged with an 0 Vicryl, superficial layers closed with 2-0 Vicryl and a running 3-0 Monocryl stitch in a subcuticular fashion. There were no immediate intraoperative complications. Peyton Schultz's assistance was required throughout the entire case. A sling was applied. Patient was awakened from anesthesia, taken to the recovery room in satisfactory condition. There were no immediate intraoperative complications. IMPLANTS USED: Arthrex size 8 stem, 52 head, and a medium size glenoid. COMPLICATIONS: None. DRAINS: None. HISTORY: Ruperto is a 67-year-old male with slowly worsening right shoulder pain. He is now about 10 years out from a hemiarthroplasty, humeral head resurfacing on the right. Decision was made to proceed with removal of the implant and conversion to a total shoulder arthroplasty. MRI preoperatively had shown intact rotator cuff. /[id number]/MODL MTDD
--- NOTE | 2018-02-15 12:19 | PDMN ---
Medical Necessity Medical necessity: [facility] IP only surgery; cpt 31005 R TSA
[2018-02-15] MEDS: ceFAZolin 2 GM/DEXTROSE 100 ML IV SCH ×2 (14:54→22:26)
--- NOTE | 2018-02-15 15:21 | ASMTCMCOM ---
CM Note CM Note Notes: 02/15/2018 Case Management Note Reviewed chart for d/c planning purposes. 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 Awaiting PT and OT evals for d/c recommendations. Case Management d/c poc: to be determined. Case Management to follow. Date Signed: 02/15/2018 03:20 PM Electronically Signed By:Aretha Menendez RN
[2018-02-15] MEDS: DOCUSATE SODIUM 100 MG CAP PO SCH (22:26)
[2018-02-16] MEDS: OXYCODONE/APAP 5/325 TAB PO PRN ×3 (05:51→12:37)
[2018-02-16 07:44] VITALS: BP 120/74
[2018-02-16] MEDS: DOCUSATE SODIUM 100 MG CAP PO SCH (08:55)
[2018-02-16] MEDS ORDERED: Herbals/Supplements -Info Only PO SCH (09:00)
[2018-02-16] MEDS ORDERED: ATORVASTATIN CALCIUM 10 MG TAB PO SCH (09:00)
[2018-02-16] MEDS ORDERED: PANTOPRAZOLE SODIUM 40 MG TAB PO SCH (09:00)
[2018-02-16] MEDS ORDERED: CHOLECALCIFEROL VIT D3 2,000 UNITS TAB/CAP PO SCH (09:00)
[2018-02-16] MEDS ORDERED: ACETAMINOPHEN 325 MG TAB PO SCH (09:00)
[2018-02-16] MEDS ORDERED: SENNOSIDES/DOCUSATE SODIUM TAB PO SCH (09:00)
== END 2018-02-16 12:55 | disposition home or self-care (01) | DRG 483 ==
LOC: F3N 05:31
PROVIDERS: ADMIT Orthopaedic Surgery; ATTEND Orthopaedic Surgery
PROC: 0RPJ0JZ Removal of Synthetic Substitute from Right Shoulder Joint, Open Approach (ICD-10-PCS; principal; 2018-02-15 07:15)
PROC: 0RRJ0JZ Replacement of Right Shoulder Joint with Synthetic Substitute, Open Approach (ICD-10-PCS; principal; 2018-02-15 07:15)
DX: M19.011 Primary osteoarthritis, right shoulder (principal); I10 Essential (primary) hypertension; K21.9 Gastro-esophageal reflux disease without esophagitis; Z23 Encounter for immunization
CPT/HCPCS: 97161-GP; 97165-GO; 97530-GP; C1713; G0008; G8978-GP-CI; G8979-GP-CI; G8980-GP-CI; G8987-GO-CI; G8988-GO-CI; G8989-GO-CI; J0171; J0690; J1100; J2250; J2370; J2405; J2704; J2795; J3010

== ENCOUNTER → 2018-04-05 | Outpatient (CLI) | payer OTHER, BC | LOC: FIMAGING 14:31 | PROVIDERS: ATTEND Physician Assistant Surgical | DX: M43.12 Spondylolisthesis, cervical region (principal) ==

== ENCOUNTER → 2018-04-12 | Outpatient (CLI) | payer OTHER, BC | LOC: BMCIMAGING 13:27 | PROVIDERS: ATTEND Internal Medicine Endocrinology, Diabetes & Metabolism | DX: E04.2 Nontoxic multinodular goiter (principal) | CPT/HCPCS: 76536-PO; G0103 ==

== ENCOUNTER → 2018-05-28 | Outpatient (CLI) | payer OTHER, BC | LOC: BMCIMAGING 15:03 | PROVIDERS: ATTEND Internal Medicine | DX: J61 Pneumoconiosis due to asbestos and other mineral fibers (principal) ==